=== PATIENT | male | born 1990 | race Caucasian/White ===

== ENCOUNTER → 2017-04-02 | Outpatient (CLI) | payer OTHER ==
[~2017-04-02] MED LIST: BACTRIM DS 8001 TA1 PO; CLINDAMYCIN HC300 MG PO; CYCLOBENZAPRINE10 MG PO; FLEXERIL10 MG PO; FLEXERIL5 MG PO; HYDROCODONE BIT1 T11 PO; IBU800 MG PO; KEFLEX500 MG PO; LEVAQUIN750 MG PO; MOTRIN600 MG PO; MOTRIN800 MG PO; NKHM; OYSTER SHELL C500 M1 PO; PERCOCET 325 MG1 TA2 PO; PERCOCET 325 MG1 TA5 PO; PREDNISONE20 MG PO; THE MEDICINE S400 IU PO; TRAMADOL HCL50 MG PO; TYLENOL W/CODEI1 TA2 PO; VIBRAMYCIN100 MG PO; VICODIN 5/500 505 MG PO; VITAMIN D50000 I3 PO
== END | disposition home or self-care (01) ==
LOC: US 09:36
DX: R74.0 Nonspecific elevation of levels of transaminase and lactic acid dehydrogenase [LDH] (principal)

== ENCOUNTER 2017-07-25 16:13 | Emergency (ER) | payer OTHER ==
[~2017-07-25] VITALS: Ht 170.1 cm; Wt 99.8 kg
[2017-07-25] MEDS ORDERED: CYCLOBENZAPRINE10 MG PO (19:43)
[2017-07-25] MEDS ORDERED: MEDROL DOSEPAK4 MG PO (19:43)
== END 2017-07-25 20:14 | disposition home or self-care (01) ==
LOC: ED 16:13
DX: S39.012A Strain of muscle, fascia and tendon of lower back, initial encounter (principal); F17.200 Nicotine dependence, unspecified, uncomplicated; Z88.0 Allergy status to penicillin; X50.0XXA Overexertion from strenuous movement or load, initial encounter; Y93.89 Activity, other specified; Y92.89 Other specified places as the place of occurrence of the external cause; Y99.9 Unspecified external cause status

== ENCOUNTER → 2022-03-10 | Outpatient (CLI) | payer OTHER ==
[~2022-03-10] MED LIST changes: +MEDROL DOSEPAK4 MG PO
== END | disposition home or self-care (01) ==
LOC: CARD 13:36
PROVIDERS: ATTEND Social Worker Clinical
DX: Z51.81 Encounter for therapeutic drug level monitoring (principal); Z79.899 Other long term (current) drug therapy

== ENCOUNTER 2022-04-16 03:20 | Emergency (ER) | payer OTHER ==
[~2022-04-16] VITALS: Ht 172.7 cm; Wt 113.4 kg
[2022-04-16] MEDS ORDERED: BUPRENORPHINE-1 EAC1 SL (03:30)
[2022-04-16] MEDS ORDERED: VYVANSE40 MG PO (03:30)
[2022-04-16] MEDS ORDERED: CLINDAMYCIN HC300 MG PO (04:05)
== END 2022-04-16 04:39 | disposition home or self-care (01) ==
LOC: ED 03:20
DX: K04.7 Periapical abscess without sinus (principal); Z88.0 Allergy status to penicillin; Z79.899 Other long term (current) drug therapy; F17.200 Nicotine dependence, unspecified, uncomplicated

== ENCOUNTER → 2022-11-11 | Outpatient (CLI) | payer OTHER ==
[~2022-11-11] MED LIST changes: +BUPRENORPHINE-1 EAC1 SL; +VYVANSE40 MG PO
[2022-11-11 09:17] LABS: BASO % 0.5 % (0.0-1.0); EOS # 0.2 10*3/uL (0.0-0.4); EOS % 2.9 % (1.0-4.0); HEMATOCRIT 46.5 % (42.0-52.0); LYMPH # 2.6 10*3/uL (1.3-4.4); LYMPH % 42.1 % (27.0-41.0); MEAN CELL VOLUME 90.6 fl (80.0-94.0); MEAN CORPUSCULAR HGB 30.8 pg (27.0-31.0); MEAN PLATELET VOLUME 9.2 fl (9.6-12.3); MONO # 0.6 10*3/uL (0.1-1.0); MONO % 9.1 % (3.0-9.0); NEUT # 2.8 10*3/uL (2.3-7.9); NEUT % 45.1 % (47.0-73.0); PLATELET COUNT AUTOMATED 321 10*3/uL (130-400); RED BLOOD COUNT 5.13 10*6/uL (4.50-5.90); RED CELL DISTRI WIDTH 12.6 % (0-14.5); WHITE BLOOD COUNT 6.3 10*3/uL (4.8-10.8)
[2022-11-11 09:33] LABS: ALKALINE PHOSPHATASE 55 U/L (46-116); BUN 10 mg/dl (9-23); CHLORIDE 104 mmol/L (98-107); POTASSIUM 4.1 mmol/L (3.4-5.1); SGPT/ALT 19 U/L (10-49); TOTAL PROTEIN 7.6 gm/dL (6.0-8.0)
[2022-11-12 06:08] LABS: HBSAG Negative (Negative); HEP B CORE AB, IGM Negative (Negative); HEPATITIS C ANTIBODY Non Reactive (Non Reactive)
== END | disposition home or self-care (01) ==
LOC: LAB 08:53
PROVIDERS: ATTEND Nurse Practitioner Family
DX: Z11.59 Encounter for screening for other viral diseases (principal); F11.20 Opioid dependence, uncomplicated; R53.83 Other fatigue

== ENCOUNTER 2022-11-29 15:13 | Emergency (ER) | payer OTHER ==
[~2022-11-29] VITALS: Ht 170.1 cm; Wt 113.4 kg
[2022-11-29] MEDS ORDERED: CYCLOBENZAPRINE10 MG PO (16:58)
[2022-11-29] MEDS ORDERED: IBU800 M2 PO (16:58)
== END 2022-11-29 17:02 | disposition home or self-care (01) ==
LOC: ED 15:13
DX: M54.50 Low back pain, unspecified (principal); Z88.0 Allergy status to penicillin; Z98.890 Other specified postprocedural states; Z90.49 Acquired absence of other specified parts of digestive tract

== ENCOUNTER 2023-01-19 17:01 | Inpatient (IN) | payer OTHER ==
[~2023-01-19] VITALS: Ht 170.2 cm; Wt 112.0 kg
[~2023-01-19 17:01] MED LIST changes: +IBU800 M2 PO
[2023-01-19 17:41] VITALS: BP 135/74
[2023-01-19 18:35] LABS: BASO % 0.2 % (0.0-1.0); EOS # 0.1 10*3/uL (0.0-0.4); EOS % 1.1 % (1.0-4.0); HEMATOCRIT 41.1 % (42.0-52.0); LYMPH # 2.1 10*3/uL (1.3-4.4); LYMPH % 16.7 % (27.0-41.0); MEAN CELL VOLUME 91.9 fl (80.0-94.0); MEAN CORPUSCULAR HGB 30.4 pg (27.0-31.0); MEAN CORPUSCULAR HGB CONC 33.1 g/dl (33.0-37.0); MEAN PLATELET VOLUME 9.2 fl (9.6-12.3); MONO # 1.1 10*3/uL (0.1-1.0); MONO % 8.6 % (3.0-9.0); NEUT % 72.9 % (47.0-73.0); PLATELET COUNT AUTOMATED 445 10*3/uL (130-400); RED BLOOD COUNT 4.47 10*6/uL (4.50-5.90); RED CELL DISTRI WIDTH 12.1 % (0-14.5); WHITE BLOOD COUNT 12.4 10*3/uL (4.8-10.8)
[2023-01-19 18:57] LABS: ALKALINE PHOSPHATASE 88 U/L (46-116); CHLORIDE 102 mmol/L (98-107); LIPASE 24 U/L (12-53); POTASSIUM 4.1 mmol/L (3.4-5.1); SGPT/ALT 22 U/L (10-49); TOTAL PROTEIN 7.5 gm/dL (6.0-8.0)
[2023-01-19 19:08] LABS: BUN < 5 mg/dl (9-23)
[2023-01-20] VITALS (10 sets, daily range): BP systolic 106–140; BP diastolic 50–76
[2023-01-20 06:19] LABS: BASO % 0.3 % (0.0-1.0); EOS # 0.2 10*3/uL (0.0-0.4); HEMATOCRIT 39.1 % (42.0-52.0); LYMPH # 2.3 10*3/uL (1.3-4.4); LYMPH % 30.3 % (27.0-41.0); MEAN CELL VOLUME 92.4 fl (80.0-94.0); MEAN CORPUSCULAR HGB CONC 32.5 g/dl (33.0-37.0); MEAN PLATELET VOLUME 8.9 fl (9.6-12.3); MONO # 0.6 10*3/uL (0.1-1.0); MONO % 8.2 % (3.0-9.0); NEUT # 4.4 10*3/uL (2.3-7.9); NEUT % 57.9 % (47.0-73.0); PLATELET COUNT AUTOMATED 414 10*3/uL (130-400); RED BLOOD COUNT 4.23 10*6/uL (4.50-5.90); RED CELL DISTRI WIDTH 12.1 % (0-14.5); WHITE BLOOD COUNT 7.6 10*3/uL (4.8-10.8)
[2023-01-20 06:28] LABS: ACT PARTIAL THROMBO TIME 33.5 SECONDS (20.0-32.1); INTERNATIONAL NORM RATIO 1.1 (2.0-3.5)
[2023-01-20 06:58] LABS: ALKALINE PHOSPHATASE 80 U/L (46-116); BUN 6 mg/dl (9-23); CHLORIDE 105 mmol/L (98-107); CHOLESTEROL 139 mg/dL (<200); FREE T4 1.22 ng/dl (0.89-1.76); LDL CHOLESTEROL 97 mg/dL (9-159); POTASSIUM 4.1 mmol/L (3.4-5.1); SGPT/ALT 17 U/L (10-49); THYROID STIM HORMONE (HS) 3.386 uIU/ml (0.550-4.780); TOTAL PROTEIN 7.2 gm/dL (6.0-8.0); TRIGLYCERIDES 74 mg/dl (<150)
[2023-01-20 07:26] LABS: VITAMIN D, 25-HYDROXY 23.5 ng/mL (30-100)
[2023-01-21] VITALS: BP 113/57
[2023-01-21] MEDS ORDERED: IBU800 MG PO (07:54)
[2023-01-21] MEDS ORDERED: COLACE100 MG PO (07:54)
[2023-01-21] MEDS ORDERED: METRONIDAZOLE500 M1 PO (07:54)
[2023-01-21] MEDS ORDERED: ONDANSETRON HYDR4 M1 PO (07:54)
[2023-01-21] MEDS ORDERED: CIPRO500 MG PO (07:54)
[2023-01-21 08:00] VITALS: BP 151/82
== END 2023-01-21 11:00 | disposition home or self-care (01) | DRG 710 ==
LOC: ED 17:01 → 5E 20:47 → EDHOLD 20:47 → 5E 01-20 00:16
PROVIDERS: Physician Assistant; Student in an Organized Health Care Education/Training Program; ADMIT Internal Medicine; ATTEND Internal Medicine
PROC: 0FT44ZZ Resection of Gallbladder, Percutaneous Endoscopic Approach (ICD-10-PCS; principal; 2023-01-20)
DX: A41.9 Sepsis, unspecified organism (principal); K80.01 Calculus of gallbladder with acute cholecystitis with obstruction; E87.1 Hypo-osmolality and hyponatremia; R73.9 Hyperglycemia, unspecified; R65.20 Severe sepsis without septic shock; D50.9 Iron deficiency anemia, unspecified; D75.839 Thrombocytosis, unspecified; R16.0 Hepatomegaly, not elsewhere classified; K76.0 Fatty (change of) liver, not elsewhere classified

== ENCOUNTER 2023-12-28 08:59 | Emergency (ER) | payer OTHER ==
[~2023-12-28] VITALS: Ht 170.1 cm; Wt 111.1 kg
[~2023-12-28 08:59] MED LIST changes: +CIPRO500 MG PO; +COLACE100 MG PO; +METRONIDAZOLE500 M1 PO; +ONDANSETRON HYDR4 M1 PO
[2023-12-28] MEDS ORDERED: Motrin,Rufen800 MG PO (09:18)
[2023-12-28] MEDS ORDERED: CLINDAMYCIN HC300 MG PO (09:18)
[2023-12-28] MEDS ORDERED: CLINDAMYCIN HCL 300 MG CAPSULE PO ONE (09:20)
[2023-12-28] MEDS ORDERED: Ketorolac Tromethamine 60 MG/2 ML VIAL IM ONE (09:20)
== END 2023-12-28 09:29 | disposition home or self-care (01) ==
LOC: ED 08:59
DX: K04.7 Periapical abscess without sinus (principal); K02.9 Dental caries, unspecified; R16.0 Hepatomegaly, not elsewhere classified; R73.9 Hyperglycemia, unspecified; D64.9 Anemia, unspecified; D69.6 Thrombocytopenia, unspecified; I10 Essential (primary) hypertension; Z88.0 Allergy status to penicillin; Z98.890 Other specified postprocedural states; Z87.891 Personal history of nicotine dependence

== ENCOUNTER 2024-04-23 10:03 | Emergency (ER) | payer OTHER ==
[~2024-04-23] VITALS: Ht 170.1 cm; Wt 112.5 kg
[~2024-04-23 10:03] MED LIST changes: +Motrin,Rufen800 MG PO
[2024-04-23] MEDS ORDERED: Ketorolac Tromethamine 60 MG/2 ML VIAL IM ONE (10:35)
== END 2024-04-23 12:59 | disposition left against medical advice (07) ==
LOC: ED 10:03
DX: S62.101A Fracture of unspecified carpal bone, right wrist, initial encounter for closed fracture (principal); S60.221A Contusion of right hand, initial encounter; F19.10 Other psychoactive substance abuse, uncomplicated; Z88.0 Allergy status to penicillin; Z98.890 Other specified postprocedural states; Z87.891 Personal history of nicotine dependence; Z53.29 Procedure and treatment not carried out because of patient's decision for other reasons; W22.8XXA Striking against or struck by other objects, initial encounter; Y93.89 Activity, other specified; Y92.89 Other specified places as the place of occurrence of the external cause; Y99.8 Other external cause status